=== PATIENT | male | born 1970 | race Caucasian/White ===

== ENCOUNTER 2022-08-03 11:43 | Emergency (ER) | payer OTHER ==
[~2022-08-03] VITALS: Ht 180.3 cm; Wt 74.8 kg
--- NOTE | 2022-08-03 11:55 | NUR ---
[email or web address], medical screening exam in progress
--- NOTE | 2022-08-03 12:01 | NUR ---
Patient moved from ER bed 3 to ER bed 1A per rechargerdonna Muñiz for x-ray. Addendum: 08/03/22 at 1207 by LYLA ...to ER room 1B.
--- NOTE | 2022-08-03 14:04 | NUR ---
DR PATIÑO OFFICE WAS CALLED ACCORDING TO DR ALEJO REQUEST.
--- NOTE | 2022-08-03 15:58 | NUR ---
PT WAS D/C'd TO HOME. D/C INSTRUCTIONS GIVEN TO THE PT BY DR ALEJO.
[2022-08-03 16:09] VITALS: BP 132/65
== END 2022-08-03 16:10 | disposition home or self-care (01) ==
LOC: ER 11:50
DX: S92.352A Displaced fracture of fifth metatarsal bone, left foot, initial encounter for closed fracture (principal); W18.40XA Slipping, tripping and stumbling without falling, unspecified, initial encounter; Y93.01 Activity, walking, marching and hiking; Y92.89 Other specified places as the place of occurrence of the external cause
CPT/HCPCS: 73610; 73630; A4663

== ENCOUNTER 2024-04-13 13:56 | Emergency (ER) | payer OTHER ==
[~2024-04-13] VITALS: Ht 180.3 cm; Wt 72.6 kg
[2024-04-13] MEDS ORDERED: IBUP-1955 PO (15:26)
[2024-04-13 15:35] VITALS: BP 140/81; O2SAT 98
== END 2024-04-13 15:38 | disposition home or self-care (01) ==
LOC: ER 13:56
DX: S82.62XA Displaced fracture of lateral malleolus of left fibula, initial encounter for closed fracture (principal); X50.1XXA Overexertion from prolonged static or awkward postures, initial encounter; Y93.89 Activity, other specified; Y92.89 Other specified places as the place of occurrence of the external cause; Y99.8 Other external cause status
CPT/HCPCS: 73610; A4606; A4663